=== PATIENT | female | born 1960 | race African-American/Black ===

== ENCOUNTER 2019-10-30 11:20 | Inpatient (IN) | payer OTHER ==
--- NOTE | 2019-10-30 11:48 | BHS.RME ---
Substance Use & Tx History - Substance Use History Alcohol Substance amount: 5-12 24 oz malt liquor beers Frequency of use: Daily Substance route: Oral Date of Last Use: 10/30/19 (10am) Nicotine Substance amount: 10 ciggs Frequency of use: Daily Substance route: Smoking Date of Last Use: 10/30/19 Cocaine- Powder Substance amount: $50 Frequency of use: Daily Substance route: Smoking Date of Last Use: 10/29/19 Physical/Psych/Mental Status - Behavior General Behavior: Increased activity (restlessness, agitation) Eye Contact: Normal - Cooperativeness Cooperativeness: Cooperative - Thinking Thought Processes: Tight, Logical, Goal Directed - Physical Health Problems Is patient presently having any pain?: No Does patient presently have any injuries (include location): No Does patient currently have a fever: No Is patient : No CIWA Nausea/Vomitin-No Nausea/No Vomiting Muscle Tremors: 1-None Visible, but [place] Anxiety: 1-Mildly Anxious Agitation: 4-Moderately Restless Paroxysmal Sweats: 1-Minimal Palms Moist Orientation: 0-Oriented Tacttile Disturbances: 0-None Auditory Disturbances: 0-None Visual Disturbances: 0-None Headache: 1-Very Mild (not yet in withdrawals due to drink at 10AM today) CIWA-Ar Total Score: 8
--- NOTE | 2019-10-30 13:25 | HP ---
<Saravanan Monroy - Last Filed: 10/30/19 13:37> CIWA Score Nausea/Vomitin-No Nausea/No Vomiting Muscle Tremors: 1-None Visible, but [place] Anxiety: 1-Mildly Anxious Agitation: 4-Moderately Restless Paroxysmal Sweats: 1-Minimal Palms Moist Orientation: 0-Oriented Tacttile Disturbances: 0-None Auditory Disturbances: 0-None Visual Disturbances: 0-None Headache: 1-Very Mild (not yet in withdrawals due to drink at 10AM today) CIWA-Ar Total Score: 8 - Admission Criteria OASAS Guidelines: Admission for Medically Managed Detox: Requires at least one of the followin. CIWA greater than 12 2. Seizures within the past 24 hours 3. Delirium tremens within the past 24 hours 4. Hallucinations within the past 24 hours 5. Acute intervention needed for co occurring medical disorder 6. Acute intervention needed for co occurring psychiatric disorder 7. Severe withdrawal that cannot be handled at a lower level of care (continued vomiting, continued diarrhea, abnormal vital signs) requiring intravenous medication and/or fluids 8. Admitting History and Physical - Admission Chief Complaint: Patient is a 59 year old female with history of alcohol use disorder, cocaine dependence, nicotine dependence, diabetes mellitus, hypertension, lumbar stenosis, gastro-esophageal reflux, ?lung nodules presents for detox. History of Present Illness: Patient is a 59 year old female with history of alcohol use disorder, cocaine dependence, nicotine dependence, diabetes mellitus, hypertension, lumbar stenosis, gastro-esophageal reflux, ?lung nodules presents for detox. PMH: diabetes mellitus, hypertension, lumbar stenosis, gastro-esophageal reflux, ?lung nodules PSH: denies Social: homeless; currently living in friend's apartment. Psych: major depressive disorder, anxiety, PTSD, Legal: denies - Substance Use History Alcohol Substance amount: 5-12 24 oz malt liquor beers. Admits eye hourly shift manager. Denies seizure, blackout. Detox: last was at [facility] in [facility] (2013). Frequency of use: Daily Substance route: Oral Date of Last Use: 10/30/19 (10am). First use at 29 years old Nicotine Substance amount: 10 ciggs Frequency of use: Daily Substance route: Smoking Date of Last Use: 10/30/19. First use at 13 years old. Cocaine- Powder Substance amount: $50 Frequency of use: Daily Substance route: Smoking Date of Last Use: 10/29/19. First used at 16 years old. History Source: Patient Limitations to Obtaining History: No Limitations Admission [facility] - HPI Exam Limitations: No Limitations - Ebola screening Have you traveled outside of the country in the last 21 days: No Have you been sick,other than usual withdrawal symptoms: No Do you have a fever: No - Review of Systems Constitutional: No Symptoms Reported EENT: denies: Blurred Vision, Hearing Loss Respiratory: denies: Cough, Shortness of Breath Cardiac: denies: Chest Pain, Palpitations GI: denies: Nausea, Vomiting, Abdominal cramping : denies: Burning, Dysuria Musculoskeletal: reports: Back Pain (degenerative arthritis), Joint Pain (degenerative arthritis). denies: Muscle Pain Integumentary: denies: Bruising, Rash Neuro: denies: Headache, Numbness, Weakness Endocrine: denies: Unexplained Weight Loss, Change in Weight Hematology: denies: Blood Clots, Easy Bleeding Psychiatric: reports: Anxious (denies suicidal or homicidal ideation), Depressed Patient History - Smoking Cessation Smoking history: Current every day smoker Have you smoked in the past 12 months: Yes Aproximately how many cigarettes per day: 10 Hx Chewing Tobacco Use: No Initiated information on smoking cessation: Yes 'Breaking Loose' booklet given: 10/30/19 Admission Physical Exam [facility] Physical General Appearance: Yes: Nourished, Mild Distress, Anxious HEENTM: Yes: Hearing grossly Normal, Normocephalic, Normal Voice, REBECCA Respiratory: Yes: Lungs Clear, Normal Breath Sounds, No Respiratory Distress, No Accessory Muscle Use Neck: Yes: Supple Breast: Yes: Breast Exam Deferred Cardiology: Yes: Regular Rhythm, Regular Rate, S1, S2 Abdominal: Yes: Normal Bowel Sounds, Non Tender, Flat, Soft Musculoskeletal: Yes: Within Normal Limits, full range of Motion Extremities: Yes: Within Normal Limits, Normal Range of Motion Neurological: Yes: Alert, Motor Strength 5/5, Normal Response Integumentary: Yes: Dry, Warm - Diagnostic (1) Alcohol dependence with uncomplicated withdrawal Current Visit: Yes Status: Chronic (2) Nicotine dependence Current Visit: Yes Status: Chronic (3) Cocaine dependence Current Visit: Yes Status: Chronic (4) Diabetes mellitus Current Visit: No Status: Chronic (5) Hypertension Current Visit: No Status: Chronic (6) GERD (gastroesophageal reflux disease) Current Visit: No Status: Chronic (7) Depression Current Visit: No Status: Chronic (8) Anxiety Current Visit: No Status: Chronic Cleared for Admission S - Detox or Rehab [facility] Level of Care: Medically Managed Detox Regimen/Protocol: Librium Claeared for Rehab Admission: No Screened but not Admitted - Documentation of Visit Screened but not Admitted: No Breathalyzer - Breathalyzer Breathalyzer: 0.082 Urine Drug Screen - Test Device Lot number: [id number] Expiration date: 10/30/21 - Control Is test valid?: Yes - Results Drug screen NEGATIVE: No Urine drug screen results: THC-Marijuana, MALIK-Cocaine, OXY-Oxycodone Inpatient Rehab Admission - Rehab Decision to Admit Inpatient rehab admission?: No <Mely Gautam - Last Filed: 10/30/19 15:11> CIWA Score - Admission Criteria OASAS Guidelines: Admission for Medically Managed Detox: Requires at least one of the followin. CIWA greater than 12 2. Seizures within the past 24 hours 3. Delirium tremens within the past 24 hours 4. Hallucinations within the past 24 hours 5. Acute intervention needed for co occurring medical disorder 6. Acute intervention needed for co occurring psychiatric disorder 7. Severe withdrawal that cannot be handled at a lower level of care (continued vomiting, continued diarrhea, abnormal vital signs) requiring intravenous medication and/or fluids 8. Admitting History and Physical - Admission History of Present Illness: Patient Name: Sharlene Roberts Date: 1960 [address]: [address] [place] [address] Sex: Female Rx Written Rx Dispensed Drug Quantity Days Supply Prescriber Name 10/19/2019 10/19/2019 endocet 10-325 mg tablet 90 30 Valentine Gorman 10/06/2019 10/06/2019 oxycodone-acetaminophen 10-325 mg tab 45 15 Rakesh Leggett MD 09/05/2019 09/06/2019 endocet 10-325 mg tablet 90 30 Jeaneth Ko C 08/04/2019 08/04/2019 endocet 10-325 mg tablet 90 30 Frankie Cisse P 07/06/2019 07/17/2019 endocet 10-325 mg tablet 90 30 Jeaneth Ko C 06/06/2019 06/06/2019 endocet 10-325 mg tablet 90 30 Jeaneth Ko C 05/08/2019 05/08/2019 endocet 10-325 mg tablet 90 30 Sherif, Valentine 04/07/2019 04/07/2019 endocet 10-325 mg tablet 90 30 Albaro Reed K 03/14/2019 03/15/2019 endocet 10-325 mg tablet 54 23 Albaro Reed K Patient History - Substances abused Alcohol Substance route: Oral Frequency: Daily Amount used: 4-6 240z can beers Age of first use: 29 Date of last use: 10/30/19 Cocaine Frequency: Daily Amount used: $50 Age of first use: 16 Date of last use: 10/30/19 Marijuana/Hashish Substance route: Smoking Frequency: Daily Amount used: $50 Age of first use: 13 Date of last use: 10/30/19
[2019-10-30] MEDS ORDERED: ONDANSETRON *ODT* 4 MG TABLET SL PRN (13:32)
[2019-10-30] MEDS ORDERED: MAG HYDROX/AL HYDROX/SIMETH 30 ML UNIT-DOSE CUP PO PRN (13:32)
[2019-10-30] MEDS ORDERED: MAGNESIUM HYDROX 2400MG/30ML ORAL SUSPENSION 30 ML CUP PO PRN (13:32)
[2019-10-30] MEDS ORDERED: chlordiazePOXIDE HCL 25 MG CAPSULE PO PRN (13:32)
[2019-10-30] MEDS ORDERED: MENTHOL/PHENOL 1 EACH UD MM PRN (13:32)
[2019-10-30] MEDS ORDERED: IBUPROFEN 400 MG TABLET (FP) PO PRN (13:32)
[2019-10-30] MEDS ORDERED: ACETAMINOPHEN 325 MG TABLET (FP) PO PRN ×2 (13:32)
[2019-10-30] MEDS ORDERED: NICOTINE POLACRILEX 2 MG GUM BUC PRN (13:32)
[2019-10-30] MEDS ORDERED: BISMUTH SUBSALICYLATE 262 MG/15 ML BTL PO PRN (13:32)
[2019-10-30] MEDS ORDERED: METHOCARBAMOL 500 MG TABLET PO PRN (13:32)
[2019-10-30] MEDS ORDERED: MAGNESIUM CITRATE 300 ML BOTTLE PO PRN (13:32)
[2019-10-30] MEDS ORDERED: hydrOXYzine PAMOATE 25 MG CAPSULE (FP) PO SCH (14:00)
[2019-10-30] MEDS ORDERED: ALBUTEROL SO4 HFA INHALER IH PRN (15:18)
[2019-10-30] MEDS: NICOTINE 14 MG/24 HOURS TOPICAL PATCH TD SCH (16:10)
[2019-10-30] MEDS: chlordiazePOXIDE HCL 25 MG CAPSULE PO SCH ×2 (16:11→22:51)
[2019-10-30 17:30] LABS: HEMATOCRIT 44.9 % (32.4-45.2); HEMOGLOBIN 14.9 GM/dL (10.7-15.3); MCH 31.2 pg (25.7-33.7); MCHC 33.1 g/dl (32.0-36.0); MEAN CELL VOLUME 94.4 fl (80-96); MEAN PLT VOLUME 8.9 fl (7.5-11.1); PLATELET COUNT 167 K/MM3 (134-434); RBC 4.76 M/mm3 (3.60-5.2); RDW 13.2 % (11.6-15.6); WHITE BLOOD COUNT 6.1 K/mm3 (4.0-10.0)
[2019-10-30 17:45] LABS: BLOOD UREA NITROGEN 9.2 mg/dL (7-18); POTASSIUM 3.7 mmol/L (3.5-5.1)
[2019-10-30 17:54] LABS: BILIRUBIN,TOTAL 0.6 mg/dL (0.2-1); CALCIUM 9.1 mg/dL (8.5-10.1); CREATININE 0.7 mg/dL (0.55-1.3); TOT PROT 7.5 g/dl (6.4-8.2)
[2019-10-30] MEDS: THIAMINE HCL 100 MG TABLET (FP) PO SCH (22:51)
[2019-10-30] MEDS: MELATONIN 5 MG TABLETS PO SCH (22:51)
[2019-10-30] MEDS: GABAPENTIN 400 MG CAPSULE PO SCH (22:51)
[2019-10-31] MEDS: GABAPENTIN 400 MG CAPSULE PO SCH ×3 (06:31→22:03)
[2019-10-31] MEDS: chlordiazePOXIDE HCL 25 MG CAPSULE PO SCH ×4 (06:31→22:02)
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
[2019-10-31] MEDS: LISINOPRIL 5 MG TABLET (FP) PO SCH (10:24)
[2019-10-31] MEDS: PRENATAL VITAMINS W/ FOLIC ACID TABLET (FP) PO SCH (10:24)
[2019-10-31] MEDS: NICOTINE 14 MG/24 HOURS TOPICAL PATCH TD SCH (10:27)
--- NOTE | 2019-10-31 10:47 | EKG ---
Test Reason : Blood Pressure : / mmHG Vent. Rate : 059 BPM Atrial Rate : 059 BPM P-R Int : 124 ms QRS Dur : 082 ms QT Int : 440 ms P-R-T Axes : 043 004 025 degrees QTc Int : 435 ms SINUS BRADYCARDIA OTHERWISE NORMAL ECG NO PREVIOUS ECGS AVAILABLE Confirmed by Dany Griffith ([id number]) on 10/31/2019 10:46:37 AM Referred By: Confirmed By:Dany Griffith
--- NOTE | 2019-10-31 12:30 | PN ---
S CIWA - CIWA Score Nausea/Vomitin-No Nausea/No Vomiting Muscle Tremors: 1-None Visible, but [place] Anxiety: 2 Agitation: 0-Normal Activity (reading a book) Paroxysmal Sweats: No Perspiration Orientation: 0-Oriented Tacttile Disturbances: 0-None Auditory Disturbances: 0-None Visual Disturbances: 0-None Headache: 0-None Present CIWA-Ar Total Score: 3 BHS Progress Note (SOAP) Subjective: Pt reports " I feel fine" at time of rounds and states she slept well. Objective: 10/31/19 12:27 Vital Signs - 24 hr 10/30/19 10/30/19 10/30/19 15:35 15:55 20:00 Temperature 97.3 F L 97.3 F L 98.6 F Pulse Rate 64 64 70 Respiratory 16 16 18 Rate Blood Pressure 133/86 133/86 123/72 O2 Sat by Pulse 97 95 Oximetry (%) 10/31/19 06:37 Temperature 97.5 F L Pulse Rate 54 L Respiratory 18 Rate Blood Pressure 109/75 O2 Sat by Pulse 94 L Oximetry (%) Laboratory Tests 10/30/19 10/30/19 10/30/19 13:50 13:50 13:50 WBC 6.1 RBC 4.76 Hgb 14.9 Hct 44.9 MCV 94.4 MCH 31.2 MCHC 33.1 RDW 13.2 Plt Count 167 MPV 8.9 Sodium 141 Potassium 3.7 Chloride 111 H Carbon Dioxide 19 L Anion Gap 11 BUN 9.2 Creatinine 0.7 Est GFR (CKD-EPI)AfAm 110.69 Est GFR (CKD-EPI)NonAf 95.50 POC Glucometer Random Glucose 103 Calcium 9.1 Total Bilirubin 0.6 AST 22 ALT 27 Alkaline Phosphatase 88 Total Protein 7.5 Albumin 4.0 Syphilis Serology Reactive A* COVID-19 (MADHU) 10/30/19 10/30/19 10/31/19 14:45 15:03 06:31 WBC RBC Hgb Hct MCV MCH MCHC RDW Plt Count MPV Sodium Potassium Chloride Carbon Dioxide Anion Gap BUN Creatinine Est GFR (CKD-EPI)AfAm Est GFR (CKD-EPI)NonAf POC Glucometer 101 99 Random Glucose Calcium Total Bilirubin AST ALT Alkaline Phosphatase Total Protein Albumin Syphilis Serology COVID-19 (MADHU) Not detected Alert o x 3 nad sitting on bed and reading book, communicated needs coherently Assessment: 10/31/19 12:28 mild withdrawal sx Plan: cont detox increase po fluids maintain safety
[2019-10-31] MEDS: LIDOCAINE 5% TOPICAL PATCH TP SCH (13:07)
[2019-10-31] MEDS: MELATONIN 5 MG TABLETS PO SCH (22:03)
[2019-10-31] MEDS: THIAMINE HCL 100 MG TABLET (FP) PO SCH (22:03)
[2019-10-31] MEDS: LIDOCAINE PATCH REMOVAL MC SCH (22:05)
[2019-10-31] MEDS: QUEtiapine FUMARATE 50 MG TABLET PO SCH (22:05)
[2019-11-01] MEDS: GABAPENTIN 400 MG CAPSULE PO SCH ×3 (06:26→22:35)
[2019-11-01] MEDS: chlordiazePOXIDE HCL 25 MG CAPSULE PO SCH ×4 (06:26→22:35)
[2019-11-01] MEDS: NICOTINE 14 MG/24 HOURS TOPICAL PATCH TD SCH (10:08)
[2019-11-01] MEDS: LIDOCAINE 5% TOPICAL PATCH TP SCH (10:08)
[2019-11-01] MEDS: LISINOPRIL 5 MG TABLET (FP) PO SCH (10:09)
[2019-11-01] MEDS: PRENATAL VITAMINS W/ FOLIC ACID TABLET (FP) PO SCH (10:09)
--- NOTE | 2019-11-01 14:39 | PN ---
S CIWA - CIWA Score Nausea/Vomitin-No Nausea/No Vomiting Muscle Tremors: 3 Anxiety: 5 Agitation: 4-Moderately Restless Paroxysmal Sweats: 1-Minimal Palms Moist Orientation: 0-Oriented Tacttile Disturbances: 0-None Auditory Disturbances: 0-None Visual Disturbances: 0-None Headache: 0-None Present CIWA-Ar Total Score: 13 BHS Progress Note (SOAP) Subjective: Pt reports she is in pain management with a provider. pt c/o anxiety irritability sweats fatigue Objective: 11/01/19 14:35 Vital Signs - 24 hr 10/31/19 10/31/19 11/01/19 17:20 21:10 05:57 Temperature 97.7 F 98.3 F 98.7 F Pulse Rate 73 64 57 L Respiratory 18 18 18 Rate Blood Pressure 118/73 110/62 114/75 O2 Sat by Pulse 95 94 L Oximetry (%) Laboratory Tests 10/30/19 10/30/19 10/30/19 12:50 13:50 13:50 WBC 6.1 RBC 4.76 Hgb 14.9 Hct 44.9 MCV 94.4 MCH 31.2 MCHC 33.1 RDW 13.2 Plt Count 167 MPV 8.9 Sodium 141 Potassium 3.7 Chloride 111 H Carbon Dioxide 19 L Anion Gap 11 BUN 9.2 Creatinine 0.7 Est GFR (CKD-EPI)AfAm 110.69 Est GFR (CKD-EPI)NonAf 95.50 POC Glucometer Random Glucose 103 Calcium 9.1 Total Bilirubin 0.6 AST 22 ALT 27 Alkaline Phosphatase 88 Total Protein 7.5 Albumin 4.0 POC Urine HCG, Qual Negative Syphilis Serology RPR Titer COVID-19 (MADHU) 10/30/19 10/30/19 10/30/19 13:50 13:50 14:45 WBC RBC Hgb Hct MCV MCH MCHC RDW Plt Count MPV Sodium Potassium Chloride Carbon Dioxide Anion Gap BUN Creatinine Est GFR (CKD-EPI)AfAm Est GFR (CKD-EPI)NonAf POC Glucometer Random Glucose Calcium Total Bilirubin AST ALT Alkaline Phosphatase Total Protein Albumin POC Urine HCG, Qual Syphilis Serology Reactive A* RPR Titer Reactive 1:1 H COVID-19 (MADHU) Not detected 10/30/19 10/31/19 11/01/19 15:03 06:31 06:29 WBC RBC Hgb Hct MCV MCH MCHC RDW Plt Count MPV Sodium Potassium Chloride Carbon Dioxide Anion Gap BUN Creatinine Est GFR (CKD-EPI)AfAm Est GFR (CKD-EPI)NonAf POC Glucometer 101 99 83 Random Glucose Calcium Total Bilirubin AST ALT Alkaline Phosphatase Total Protein Albumin POC Urine HCG, Qual Syphilis Serology RPR Titer COVID-19 (MADHU) covid-19 not detected pt reports hx of syphilis infection 30 yrs ago with treatment/last retreated in 1999. alert o x 3 nad seen in bed at rounds but awake and communicated needs coherently Assessment: 11/01/19 14:37 withdrawal sx Plan: [facility] detox increase po fluids maintain safety
[2019-11-01] MEDS ORDERED: IBUPROFEN 600 MG TABLET (FP) PO PRN (15:41)
[2019-11-01] MEDS ORDERED: METHOCARBAMOL 750 MG TABLET PO PRN (15:42)
--- NOTE | 2019-11-01 15:44 | PN ---
S Progress Note Note: Pt c/o pain and wants to continue with her Endocet for hx of degenerative arthritis, Joint Pain (degenerative arthritis). Pt was spoken to and explained will not be restarting Endocet(see admission H/P) while in detox. Pt wanted to know what she can get for pain relief and was informed she has Robaxin, Lidocaine Patch, Ibuprofen as directed for pain. Pt was reminded to inform the nurse when pain medication is needed. Discussed pt's concern with Asst Director, Dr. Gautam. MDM: We agreed pt will be reminded to ask for pain medications in order as directed and will be monitored for pain relief. Vital Signs - 24 hr 10/31/19 10/31/19 11/01/19 17:20 21:10 05:57 Temperature 97.7 F 98.3 F 98.7 F Pulse Rate 73 64 57 L Respiratory 18 18 18 Rate Blood Pressure 118/73 110/62 114/75 O2 Sat by Pulse 95 94 L Oximetry (%) Increase Robaxin 750 mg po Q8H prn cont Lidocaine Patch Increase ibuprofen 600 mg po Q6h prn Joel TP apply @HS after Lidocaine Patch is removed
--- NOTE | 2019-11-01 15:45 | PN ---
Teaching Attending Note Name of Resident: Saravanan Monroy ATTENDING PHYSICIAN STATEMENT I saw and evaluated the patient. I reviewed the resident's note and discussed the case with the resident. I agree with the resident's findings and plan as documented. SUBJECTIVE: OBJECTIVE: ASSESSMENT AND PLAN: 1. Alcohol use disorder Plan 1. Librium detox 2. pt taking Endocet prescription, can not be continued while an inpt.
[2019-11-01] MEDS: QUEtiapine FUMARATE 50 MG TABLET PO SCH (22:35)
[2019-11-01] MEDS: MELATONIN 5 MG TABLETS PO SCH (22:35)
[2019-11-01] MEDS: METHYL SALICYLATE/MENTHOL OINT 30 GM TUBE TP SCH (22:35)
[2019-11-01] MEDS: THIAMINE HCL 100 MG TABLET (FP) PO SCH (22:36)
[2019-11-01] MEDS: LIDOCAINE PATCH REMOVAL MC SCH (22:37)
[2019-11-02] MEDS ORDERED: chlordiazePOXIDE HCL 10 MG CAPSULE PO PRN
[2019-11-02] MEDS: chlordiazePOXIDE HCL 10 MG CAPSULE PO SCH ×4 (07:08→22:12)
[2019-11-02] MEDS: GABAPENTIN 400 MG CAPSULE PO SCH ×2 (07:08→13:30)
[2019-11-02] MEDS: NICOTINE 14 MG/24 HOURS TOPICAL PATCH TD SCH (11:14)
[2019-11-02] MEDS: PRENATAL VITAMINS W/ FOLIC ACID TABLET (FP) PO SCH (11:14)
[2019-11-02] MEDS: LIDOCAINE 5% TOPICAL PATCH TP SCH (11:15)
[2019-11-02] MEDS: LISINOPRIL 5 MG TABLET (FP) PO SCH (11:15)
[2019-11-02] MEDS: ASPIRIN 81 MG CHEWABLE TABLETS PO SCH (13:30)
[2019-11-02] MEDS: PANTOPRAZOLE 40 MG TABLET PO SCH (13:30)
--- NOTE | 2019-11-02 14:04 | PN ---
BHS Progress Note (SOAP) Subjective: Nurse Maldonado mae called real estate underwriter to report patient fall. Saw pt who reports she fell while walking out to get her medication at nursing station and her left knee buckled. Reports she fell on her left side with her whole body on the floor but lowered her head and did not hit it(when specifically asked her). Reports weakness to that side due to her lumber stenosis and sciatic nerve problems. Pt denied any new pain, stating "no pain now that was not there before". Denies dizziness, headache or drowsiness. Pt was informed that she will be transported to the [facility] and she agreed. However, nurse maldonado went back to inform pt on process to ready for evaluation to ER and pt declined. Both real estate underwriter and nurse went back to explain to pt who restated she is not in any pain that was not there before and does not want to go. Pt was reminded if anything changes, she should not hesitate to inform staff so she can follow up at the ER for further evaluation. Objective: 11/02/19 14:59 Vital Signs - 24 hr 11/01/19 11/01/19 11/02/19 16:54 20:50 06:16 Temperature 98.0 F 97.1 F L 97.8 F Pulse Rate 79 79 79 Respiratory 20 16 16 Rate Blood Pressure 119/76 121/72 99/71 O2 Sat by Pulse 96 96 Oximetry (%) Alert o x 3, communicating coherently and soft spoken nad, sitting in bed Head;Normocephalic; atruamatic Neck:Supple, FROM cardiac;s1 s2, rrr lungs:ctab abdomen:soft,+bs, nt,nd Extermities:no edema,skin intact, no skin abrasions or bleeding; mild tenderness to left knee Active ROM all extremities. Left leg raise less than right leg(pt reports chronic pattern). Assessment: 11/02/19 15:00 fall Plan: Recommendation: Protocol#1 Transfer to [facility] ER for evaluation and possible treatment and to return to [facility] to continue detox after clearance. However, pt has declined to go to the ER. Pt has been informed to inform staff of any change in condition
[2019-11-02] MEDS ORDERED: METHOCARBAMOL 500 MG TABLET PO PRN (15:23)
[2019-11-02] MEDS ORDERED: NAPROXEN 500 MG TABLET PO PRN (15:34)
--- NOTE | 2019-11-02 15:38 | PN ---
[facility] CIWA - CIWA Score Nausea/Vomitin-No Nausea/No Vomiting Muscle Tremors: 2 Anxiety: 4-Mod. Anxious/Guarded Agitation: 2 Paroxysmal Sweats: No Perspiration Orientation: 0-Oriented Tacttile Disturbances: 0-None Auditory Disturbances: 0-None Visual Disturbances: 0-None Headache: 0-None Present CIWA-Ar Total Score: 8 S Progress Note (SOAP) Subjective: Pt c/o chronic back pain and reports sleeping well stating "any day I wake up wether pain or not, it's a good day". Reports Diarrhea last night but did not inform staff. Additional med verification: Called pt's [facility] pharmacy and verified that pt is on Naprosyn 500 mg po BID PRN, Spiriva 2.5 2 puffs daily, lancets for checking for blood sugars but no DM treatment. Discussed with pt the drowsy effects of different medications on her regimen. pt agrees to come down on gabapentin to 600 mg po tid. Objective: 11/02/19 15:41 Vital Signs - 24 hr 11/01/19 11/01/19 11/02/19 16:54 20:50 06:16 Temperature 98.0 F 97.1 F L 97.8 F Pulse Rate 79 79 79 Respiratory 20 16 16 Rate Blood Pressure 119/76 121/72 99/71 O2 Sat by Pulse 96 96 Oximetry (%) 11/02/19 13:53 Temperature 98 F Pulse Rate 81 Respiratory 16 Rate Blood Pressure 123/86 O2 Sat by Pulse 97 Oximetry (%) Laboratory Tests 10/30/19 10/30/19 10/30/19 12:50 13:50 13:50 WBC 6.1 RBC 4.76 Hgb 14.9 Hct 44.9 MCV 94.4 MCH 31.2 MCHC 33.1 RDW 13.2 Plt Count 167 MPV 8.9 Sodium Potassium Chloride Carbon Dioxide Anion Gap BUN Creatinine Est GFR (CKD-EPI)AfAm Est GFR (CKD-EPI)NonAf POC Glucometer Random Glucose Calcium Total Bilirubin AST ALT Alkaline Phosphatase Total Protein Albumin POC Urine HCG, Qual Negative Syphilis Serology RPR Titer COVID-19 (MADHU) TB (QFT) Incubation TB Test (QFT) Nil 0.06 TB Test (QFT) Mitogen >10.00 TB Test (QFT) Ag 1 4.23 TB Test (QFT) Ag 2 3.32 TB Test (QFT) Positive H TB Positive Criteria 10/30/19 10/30/19 10/30/19 13:50 13:50 13:50 WBC RBC Hgb Hct MCV MCH MCHC RDW Plt Count MPV Sodium 141 Potassium 3.7 Chloride 111 H Carbon Dioxide 19 L Anion Gap 11 BUN 9.2 Creatinine 0.7 Est GFR (CKD-EPI)AfAm 110.69 Est GFR (CKD-EPI)NonAf 95.50 POC Glucometer Random Glucose 103 Calcium 9.1 Total Bilirubin 0.6 AST 22 ALT 27 Alkaline Phosphatase 88 Total Protein 7.5 Albumin 4.0 POC Urine HCG, Qual Syphilis Serology Reactive A* RPR Titer Reactive 1:1 H COVID-19 (MADHU) TB (QFT) Incubation TB Test (QFT) Nil TB Test (QFT) Mitogen TB Test (QFT) Ag 1 TB Test (QFT) Ag 2 TB Test (QFT) TB Positive Criteria 10/30/19 10/30/19 10/31/19 14:45 15:03 06:31 WBC RBC Hgb Hct MCV MCH MCHC RDW Plt Count MPV Sodium Potassium Chloride Carbon Dioxide Anion Gap BUN Creatinine Est GFR (CKD-EPI)AfAm Est GFR (CKD-EPI)NonAf POC Glucometer 101 99 Random Glucose Calcium Total Bilirubin AST ALT Alkaline Phosphatase Total Protein Albumin POC Urine HCG, Qual Syphilis Serology RPR Titer COVID-19 (MADHU) Not detected TB (QFT) Incubation TB Test (QFT) Nil TB Test (QFT) Mitogen TB Test (QFT) Ag 1 TB Test (QFT) Ag 2 TB Test (QFT) TB Positive Criteria 11/01/19 11/02/19 06:29 07:10 WBC RBC Hgb Hct MCV MCH MCHC RDW Plt Count MPV Sodium Potassium Chloride Carbon Dioxide Anion Gap BUN Creatinine Est GFR (CKD-EPI)AfAm Est GFR (CKD-EPI)NonAf POC Glucometer 83 113 Random Glucose Calcium Total Bilirubin AST ALT Alkaline Phosphatase Total Protein Albumin POC Urine HCG, Qual Syphilis Serology RPR Titer COVID-19 (MADHU) TB (QFT) Incubation TB Test (QFT) Nil TB Test (QFT) Mitogen TB Test (QFT) Ag 1 TB Test (QFT) Ag 2 TB Test (QFT) TB Positive Criteria Reports hx of TB exposure in 1998 with treatment with INH. States "cannot do CXR due to radiation exposure and left chest nodule". Alert o x 3 nad seen in bed at rounds and communicated coherently. Assessment: 11/02/19 15:43 w/s Plan: continue detox increase po fluids maintain safety D/C Gabapentin 800 mg po TID Change to Gabapentin 600 mg po TID
[2019-11-02] MEDS ORDERED: GABAPENTIN 400 MG CAPSULE PO SCH (16:11)
[2019-11-02] MEDS: QUEtiapine FUMARATE 50 MG TABLET PO SCH (22:11)
[2019-11-02] MEDS: GABAPENTIN 300 MG CAPSULE PO SCH (22:12)
[2019-11-02] MEDS: METHYL SALICYLATE/MENTHOL OINT 30 GM TUBE TP SCH (22:12)
[2019-11-02] MEDS: BUDESONIDE/FORMETEROL FUMARATE 80/4.5 mcg INHALER IH SCH (22:12)
[2019-11-02] MEDS: THIAMINE HCL 100 MG TABLET (FP) PO SCH (22:12)
[2019-11-02] MEDS: MELATONIN 5 MG TABLETS PO SCH (22:12)
[2019-11-02] MEDS: LIDOCAINE PATCH REMOVAL MC SCH (22:12)
[2019-11-03] MEDS ORDERED: chlordiazePOXIDE HCL 10 MG CAPSULE PO SCH (05:00)
[2019-11-03] MEDS: GABAPENTIN 300 MG CAPSULE PO SCH (06:20)
[2019-11-03] MEDS ORDERED: FERROUS SO4 325 MG TABLET (FP) PO SCH (10:00)
[2019-11-03] MEDS: PANTOPRAZOLE 40 MG TABLET PO SCH (10:23)
[2019-11-03] MEDS: LIDOCAINE 5% TOPICAL PATCH TP SCH (10:23)
[2019-11-03] MEDS: NICOTINE 14 MG/24 HOURS TOPICAL PATCH TD SCH (10:23)
[2019-11-03] MEDS: LISINOPRIL 5 MG TABLET (FP) PO SCH (10:23)
[2019-11-03] MEDS: ASPIRIN 81 MG CHEWABLE TABLETS PO SCH (10:23)
[2019-11-03] MEDS: PRENATAL VITAMINS W/ FOLIC ACID TABLET (FP) PO SCH (10:23)
[2019-11-03] MEDS: BUDESONIDE/FORMETEROL FUMARATE 80/4.5 mcg INHALER IH SCH (10:27)
--- NOTE | 2019-11-03 10:27 | PN ---
S CIWA - CIWA Score Nausea/Vomitin-No Nausea/No Vomiting Muscle Tremors: 3 Anxiety: 3 Agitation: 0-Normal Activity Paroxysmal Sweats: No Perspiration Orientation: 0-Oriented Tacttile Disturbances: 0-None Auditory Disturbances: 0-None Visual Disturbances: 0-None Headache: 0-None Present CIWA-Ar Total Score: 6 BHS Progress Note (SOAP) Subjective: Pt is oob ambulating with cane to and from room to dayroom and hallways. Pt appears to be in good spirit this morning with no obvious c/o discomfort except existing back pain when asked. Reports she slept well and was up for her blood pressure to be taken this morning. Reports "much better". sl tremors. Objective: 11/03/19 10:42 Vital Signs - 24 hr 11/02/19 11/02/19 11/02/19 13:26 13:53 15:51 Temperature 98.0 F 98 F 97.5 F L Pulse Rate 81 81 80 Respiratory 16 16 18 Rate Blood Pressure 123/86 123/86 99/73 O2 Sat by Pulse 97 97 Oximetry (%) 11/02/19 11/02/19 11/02/19 15:53 17:10 17:30 Temperature 97.5 F L 97.5 F L 97.5 F L Pulse Rate 80 87 87 Respiratory 18 16 16 Rate Blood Pressure 99/73 97/63 97/63 O2 Sat by Pulse Oximetry (%) 11/02/19 11/02/19 11/02/19 19:30 19:47 20:20 Temperature 98.0 F 98.2 F Pulse Rate 96 H 96 H 86 Respiratory 18 18 16 Rate Blood Pressure 112/81 112/81 106/69 O2 Sat by Pulse 96 Oximetry (%) 11/02/19 11/02/19 11/02/19 21:30 23:14 23:30 Temperature 98.2 F 98.2 F 97.1 F L Pulse Rate 86 75 75 Respiratory 16 16 16 Rate Blood Pressure 106/69 126/61 126/81 O2 Sat by Pulse Oximetry (%) 11/03/19 11/03/19 11/03/19 01:30 02:30 05:30 Temperature 97.8 F 97.8 F 98.7 F Pulse Rate 76 76 69 Respiratory 16 16 16 Rate Blood Pressure 97/59 L 97/59 L 105/72 O2 Sat by Pulse 95 Oximetry (%) 11/03/19 11/03/19 06:04 09:10 Temperature 98.7 F 97.1 F L Pulse Rate 69 83 Respiratory 16 16 Rate Blood Pressure 105/72 106/78 O2 Sat by Pulse 91 L Oximetry (%) Laboratory Tests 10/30/19 10/30/19 10/30/19 12:50 13:50 13:50 WBC 6.1 RBC 4.76 Hgb 14.9 Hct 44.9 MCV 94.4 MCH 31.2 MCHC 33.1 RDW 13.2 Plt Count 167 MPV 8.9 Sodium Potassium Chloride Carbon Dioxide Anion Gap BUN Creatinine Est GFR (CKD-EPI)AfAm Est GFR (CKD-EPI)NonAf POC Glucometer Random Glucose Calcium Total Bilirubin AST ALT Alkaline Phosphatase Total Protein Albumin POC Urine HCG, Qual Negative Syphilis Serology RPR Titer COVID-19 (MADHU) TB (QFT) Incubation TB Test (QFT) Nil 0.06 TB Test (QFT) Mitogen >10.00 TB Test (QFT) Ag 1 4.23 TB Test (QFT) Ag 2 3.32 TB Test (QFT) Positive H TB Positive Criteria 10/30/19 10/30/19 10/30/19 13:50 13:50 13:50 WBC RBC Hgb Hct MCV MCH MCHC RDW Plt Count MPV Sodium 141 Potassium 3.7 Chloride 111 H Carbon Dioxide 19 L Anion Gap 11 BUN 9.2 Creatinine 0.7 Est GFR (CKD-EPI)AfAm 110.69 Est GFR (CKD-EPI)NonAf 95.50 POC Glucometer Random Glucose 103 Calcium 9.1 Total Bilirubin 0.6 AST 22 ALT 27 Alkaline Phosphatase 88 Total Protein 7.5 Albumin 4.0 POC Urine HCG, Qual Syphilis Serology Reactive A* RPR Titer Reactive 1:1 H COVID-19 (MADHU) TB (QFT) Incubation TB Test (QFT) Nil TB Test (QFT) Mitogen TB Test (QFT) Ag 1 TB Test (QFT) Ag 2 TB Test (QFT) TB Positive Criteria 10/30/19 10/30/19 10/31/19 14:45 15:03 06:31 WBC RBC Hgb Hct MCV MCH MCHC RDW Plt Count MPV Sodium Potassium Chloride Carbon Dioxide Anion Gap BUN Creatinine Est GFR (CKD-EPI)AfAm Est GFR (CKD-EPI)NonAf POC Glucometer 101 99 Random Glucose Calcium Total Bilirubin AST ALT Alkaline Phosphatase Total Protein Albumin POC Urine HCG, Qual Syphilis Serology RPR Titer COVID-19 (MADHU) Not detected TB (QFT) Incubation TB Test (QFT) Nil TB Test (QFT) Mitogen TB Test (QFT) Ag 1 TB Test (QFT) Ag 2 TB Test (QFT) TB Positive Criteria 11/01/19 11/02/19 11/03/19 06:29 07:10 06:23 WBC RBC Hgb Hct MCV MCH MCHC RDW Plt Count MPV Sodium Potassium Chloride Carbon Dioxide Anion Gap BUN Creatinine Est GFR (CKD-EPI)AfAm Est GFR (CKD-EPI)NonAf POC Glucometer 83 113 95 Random Glucose Calcium Total Bilirubin AST ALT Alkaline Phosphatase Total Protein Albumin POC Urine HCG, Qual Syphilis Serology RPR Titer COVID-19 (MADHU) TB (QFT) Incubation TB Test (QFT) Nil TB Test (QFT) Mitogen TB Test (QFT) Ag 1 TB Test (QFT) Ag 2 TB Test (QFT) TB Positive Criteria alert o x 3 nad oob ambulating with cane with steady gait Assessment: 11/03/19 10:42 mild withdrawal sx Plan: cont detox increase po fluids maintain safety Scheduled for d/c in a.m if medically stable
[2019-11-03 13:27] VITALS: PULSE 79; TEMP 98.6
[2019-11-03] MEDS ORDERED: TIOTROPIUM BROMIDE 2.5 MCG (SPIRIVA) RESPIMAT INHALER IH SCH (13:30)
[2019-11-03 13:45] VITALS: BP 115/63
--- NOTE | 2019-11-03 14:33 | DS ---
[facility] Detox Discharge Summary Admission Date: 10/30/19 Discharge Date: 11/03/19 - History Present History: Alcohol Dependence, Cocaine Dependence Additional Comments: Pt requests early voluntary discharge today. Pt medically stable for discharge. Pt has met with her counselor Ms Joshua Charleszuhairruby and has been referred to [facility] in the [place] for CD aftercare. Pt reports she has appointments set up with her providers on 11/08/19 for psych and 11/20/19 for pain management. Pertinent Past History: Asthma GERD DM(no med-diet control, monitored) hx Sciatica Hx Chronic Back pain MDD - Physical Exam Results Vital Signs: Vital Signs Temperature 98.6 F 11/03/19 13:30 Pulse Rate 79 11/03/19 13:30 Respiratory Rate 18 11/03/19 13:30 Blood Pressure 115/63 11/03/19 13:30 O2 Sat by Pulse Oximetry (%) 96 11/03/19 13:15 alert o x 3 nad oob ambulating with steady gait with or without cane. cardiac:s1 s2, rrr lungs:ctab abdomen:s1 s2,rrr extremities:no edema, skin intact Pertinent Admission Physical Exam Findings: Laboratory Tests 10/30/19 10/30/19 10/30/19 12:50 13:50 13:50 WBC 6.1 RBC 4.76 Hgb 14.9 Hct 44.9 MCV 94.4 MCH 31.2 MCHC 33.1 RDW 13.2 Plt Count 167 MPV 8.9 Sodium Potassium Chloride Carbon Dioxide Anion Gap BUN Creatinine Est GFR (CKD-EPI)AfAm Est GFR (CKD-EPI)NonAf POC Glucometer Random Glucose Calcium Total Bilirubin AST ALT Alkaline Phosphatase Total Protein Albumin POC Urine HCG, Qual Negative Syphilis Serology RPR Titer COVID-19 (MADHU) TB (QFT) Incubation TB Test (QFT) Nil 0.06 TB Test (QFT) Mitogen >10.00 TB Test (QFT) Ag 1 4.23 TB Test (QFT) Ag 2 3.32 TB Test (QFT) Positive H TB Positive Criteria 10/30/19 10/30/19 10/30/19 13:50 13:50 13:50 WBC RBC Hgb Hct MCV MCH MCHC RDW Plt Count MPV Sodium 141 Potassium 3.7 Chloride 111 H Carbon Dioxide 19 L Anion Gap 11 BUN 9.2 Creatinine 0.7 Est GFR (CKD-EPI)AfAm 110.69 Est GFR (CKD-EPI)NonAf 95.50 POC Glucometer Random Glucose 103 Calcium 9.1 Total Bilirubin 0.6 AST 22 ALT 27 Alkaline Phosphatase 88 Total Protein 7.5 Albumin 4.0 POC Urine HCG, Qual Syphilis Serology Reactive A* RPR Titer Reactive 1:1 H COVID-19 (MADHU) TB (QFT) Incubation TB Test (QFT) Nil TB Test (QFT) Mitogen TB Test (QFT) Ag 1 TB Test (QFT) Ag 2 TB Test (QFT) TB Positive Criteria 10/30/19 10/30/19 10/31/19 14:45 15:03 06:31 WBC RBC Hgb Hct MCV MCH MCHC RDW Plt Count MPV Sodium Potassium Chloride Carbon Dioxide Anion Gap BUN Creatinine Est GFR (CKD-EPI)AfAm Est GFR (CKD-EPI)NonAf POC Glucometer 101 99 Random Glucose Calcium Total Bilirubin AST ALT Alkaline Phosphatase Total Protein Albumin POC Urine HCG, Qual Syphilis Serology RPR Titer COVID-19 (MADHU) Not detected TB (QFT) Incubation TB Test (QFT) Nil TB Test (QFT) Mitogen TB Test (QFT) Ag 1 TB Test (QFT) Ag 2 TB Test (QFT) TB Positive Criteria 11/01/19 11/02/19 11/03/19 06:29 07:10 06:23 WBC RBC Hgb Hct MCV MCH MCHC RDW Plt Count MPV Sodium Potassium Chloride Carbon Dioxide Anion Gap BUN Creatinine Est GFR (CKD-EPI)AfAm Est GFR (CKD-EPI)NonAf POC Glucometer 83 113 95 Random Glucose Calcium Total Bilirubin AST ALT Alkaline Phosphatase Total Protein Albumin POC Urine HCG, Qual Syphilis Serology RPR Titer COVID-19 (MADHU) TB (QFT) Incubation TB Test (QFT) Nil TB Test (QFT) Mitogen TB Test (QFT) Ag 1 TB Test (QFT) Ag 2 TB Test (QFT) TB Positive Criteria - Treatment Hospital Course: Detox Protocol Followed, Detoxed Safely, Responded well, Discharged Condition Good, Rehab Referral Accepted Patient has Accepted a Rehab Referral to: [facility] OP - Medication Discharge Medications: Ambulatory Orders Albuterol Sulfate Inhaler - [Ventolin HFA Inhaler -] 2 inh PO Q8H PRN 10/30/19 Aspirin [ASA -] 81 mg PO DAILY 10/30/19 Breo Ellep 1 puff PO DAILY 10/30/19 Ferrous Sulfate 325 mg PO DAILY 10/30/19 Gabapentin 800 mg PO TID 10/30/19 Lisinopril [Prinivil] 5 mg PO DAILY 10/30/19 Omeprazole 40 mg PO DAILY 10/30/19 Oxycodone HCl/Acetaminophen [Endocet 10-325 mg Tablet] 1 tab PO TID 10/30/19 Quetiapine Fumarate [Seroquel -] 50 mg PO HS 10/30/19 traZODone HCL [Desyrel -] 50 mg PO HS 10/30/19 Naproxen [Naprosyn] 500 mg PO BID PRN 11/02/19 Quetiapine Fumarate [Seroquel -] 50 mg PO HS #30 tablet 11/03/19 Tiotropium [place] [Spiriva Respimat] 2 puff IH DAILY 11/03/19 - Diagnosis (1) Alcohol dependence with uncomplicated withdrawal Current Visit: Yes Status: Acute (2) Cocaine dependence Current Visit: Yes Status: Acute Qualifiers: Substance use status: uncomplicated Qualified Code(s): F14.20 - Cocaine dependence, uncomplicated (3) Asthma Current Visit: Yes Status: Chronic Qualifiers: Asthma severity: unspecified severity Asthma persistence: unspecified Asthma complication type: unspecified Qualified Code(s): J45.909 - Unspecified asthma, uncomplicated (4) Nicotine dependence Current Visit: Yes Status: Acute Qualifiers: Nicotine product type: cigarettes Substance use status: in withdrawal Qualified Code(s): F17.213 - Nicotine dependence, cigarettes, with withdrawal (5) Diabetes mellitus Current Visit: Yes Status: Suspected Qualifiers: Diabetes mellitus type: type 2 (6) GERD (gastroesophageal reflux disease) Current Visit: Yes Status: Chronic Qualifiers: Esophagitis presence: esophagitis presence not specified Qualified Code(s): K21.9 - Gastro-esophageal reflux disease without esophagitis (7) Hypertension Current Visit: Yes Status: Chronic Qualifiers: Hypertension type: essential hypertension Qualified Code(s): I10 - Essential (primary) hypertension (8) History of chronic back pain Current Visit: Yes Status: Chronic (9) History of sciatica Current Visit: Yes Status: Chronic - AMA Did Patient Leave Against Medical Advice: No
--- NOTE | 2019-11-03 14:41 | PN ---
[facility] Progress Note Note: Psychiatry Attending's note : Called for prescription. Patient is for discharge today. Chart reviewed. Note by Dr Isbell (09/30/19) : read. Seroquel 50 mg po hs. Confirmed. No report of adverse effects. Patient consented for treatment. Script for a month supply sent. Electronically to [facility] At [phone].
[2019-11-04] MEDS ORDERED: chlordiazePOXIDE HCL 10 MG CAPSULE PO ONE (05:00)
== END 2019-11-03 14:40 | disposition home or self-care (01) | DRG 774 ==
LOC: YASAS 11:20 → Y3N 14:52 → Y5N DETOX 15:27
PROVIDERS: ADMIT Allergy & Immunology; ATTEND Allergy & Immunology
PROC: HZ2ZZZZ Detoxification Services for Substance Abuse Treatment (ICD-10-PCS; principal; 2019-10-30)
DX: F10.230 Alcohol dependence with withdrawal, uncomplicated (principal); F14.20 Cocaine dependence, uncomplicated; F17.213 Nicotine dependence, cigarettes, with withdrawal; F33.2 Major depressive disorder, recurrent severe without psychotic features; F25.9 Schizoaffective disorder, unspecified; F19.24 Other psychoactive substance dependence with psychoactive substance-induced mood disorder; F19.282 Other psychoactive substance dependence with psychoactive substance-induced sleep disorder; J45.909 Unspecified asthma, uncomplicated; E11.9 Type 2 diabetes mellitus without complications; K21.9 Gastro-esophageal reflux disease without esophagitis; I10 Essential (primary) hypertension; Z62.810 Personal history of physical and sexual abuse in childhood; Z59.0 Homelessness; W18.39XA Other fall on same level, initial encounter; Y93.89 Activity, other specified; Y92.238 Other place in hospital as the place of occurrence of the external cause
CPT/HCPCS: 36415; 80053; 81025; 82962; 85027; 86480; 86593; 86780; 93005; 93010; U0003